=== PATIENT | male | born 1950 | race Caucasian/White ===

== ENCOUNTER → 2020-08-04 | Outpatient (CLI) | payer OTHER ==
[~2020-08-04] MED LIST: CARVEDILOL6.25 M1 PO; CLOPIDOGREL75 MG PO; ELIQUIS5 MG PO; IMBRUVICA420 MG PO; LISINOPRIL10 MG PO; ROSUVASTATIN CA20 MG PO
== END ==
LOC: SJCVCIMAG 07:28
PROVIDERS: ATTEND Internal Medicine
DX: I65.23 Occlusion and stenosis of bilateral carotid arteries (principal); I35.8 Other nonrheumatic aortic valve disorders; I27.20 Pulmonary hypertension, unspecified; I48.91 Unspecified atrial fibrillation; I49.3 Ventricular premature depolarization; R55 Syncope and collapse; I25.10 Atherosclerotic heart disease of native coronary artery without angina pectoris; I25.83 Coronary atherosclerosis due to lipid rich plaque; I10 Essential (primary) hypertension; I48.0 Paroxysmal atrial fibrillation; L98.9 Disorder of the skin and subcutaneous tissue, unspecified; E78.2 Mixed hyperlipidemia; Z95.5 Presence of coronary angioplasty implant and graft; Z88.8 Allergy status to other drugs, medicaments and biological substances; Z79.899 Other long term (current) drug therapy; Z87.891 Personal history of nicotine dependence

== ENCOUNTER 2020-08-10 08:56 | Observation (INO) | payer OTHER ==
[~2020-08-10] VITALS: Ht 170.2 cm; Wt 97.1 kg
[2020-08-10 09:39] VITALS: BP 98/66
[2020-08-10] MEDS ORDERED: CARVEDILOL6.25 M1 PO (09:50)
[2020-08-10] MEDS ORDERED: LISINOPRIL10 MG PO (09:50)
[2020-08-10] MEDS ORDERED: IMBRUVICA420 MG PO (09:51)
[2020-08-10] MEDS ORDERED: ELIQUIS5 MG PO (09:52)
[2020-08-10 10:04] LABS: HEMATOCRIT 46.7 % (42.0-52.0); HEMOGLOBIN 15.4 gm/dL (14.0-18.0); MCHC 33.1 g/dL (28.0-37.0); MCV 102.8 fL (80.0-100.0); RBC 4.54 mil/uL (4.50-6.00); RDW 13.9 % (10.5-14.5)
[2020-08-10 10:14] LABS: CALCIUM 8.7 mg/dL (8.5-10.1); CREATININE 1.2 mg/dL (0.7-1.3); POTASSIUM 4.3 mmol/L (3.5-5.1)
--- NOTE | 2020-08-10 12:48 | EKG ---
[place] [address] [facility] [place] [address] ELECTROCARDIOGRAM REPORT Name: ALIYAH PAULINO Room #: REG LYNDA Cabrera#: [id number] Admission: 08/10/20 Attend Phys: Addison Estrada Discharge: Date of : 46 Report #: [id number] [facility] Test Date: 2020-08-10 Test Time: 09:19:35 Pat Name: ALIYAH PAULINO Department: Room: Gender: M Cost Coordinator: BRITANY : 1950 Requested By: Addison Estrada Order Number: [id number] MD: Scar Pappas Measurements Intervals [place] Rate: 73 P: CT: QRS: 62 QRSD: 96 T: -24 QT: 385 QTc: 425 Interpretive Statements Atrial fibrillation Low voltage, precordial leads Borderline T abnormalities, inferior leads Compared to ECG 10/14/2003 06:40:48 Low QRS voltage now present Sinus rhythm no longer present Myocardial infarct finding no longer present Possible ischemia no longer present T-wave abnormality still present Electronically Signed On 08-10-2020 12:47:54 [employer]MAIL MARKETING PROCESSOR by Scar Pappas [email or web address] <ELECTRONICALLY SIGNED> By: Scar Pappas MD, FACC 08/10/20 1247 8 09 Scar Pappas MD, FAC /EPI
[2020-08-10 15:00] VITALS: BP 130/68
--- NOTE | 2020-08-10 15:28 | NUR ---
TO UNIT POST CATH BY BED, REPORT FROM SHARIF ELDRIDGE. RIGHT GROIN SITE CDI, SOFT AND NONTENDER. AT BEDSIDE. AFIB PER TELE, HR 60-70'S. ORIENTED TO UNIT AND FALL PRECAUTIONS.
[2020-08-10 16:00] VITALS: BP 120/67
[2020-08-10 20:15] VITALS: BP 129/76
--- NOTE | 2020-08-11 03:10 | NUR ---
ASSESSMENTS CHARTED, MEDS CHARTED GIVEN. PATIENT WENT TO [employer]IL STRAPPER DURING DAY, RECEIVED STENT TO RCA, AND REEMED AN EXISTING STENT. PATIENT OFF BEDREST AT START OF SHIFT. RIGHT GROIN DRESSING IS BLOODY WITH PERIMETERS MARKED. PATIENT SNEEZED AND CAUSED THE CLOT TO BREAK. PERIMETER HAS NOT CHANGED DURING SHIFT. WHILE CHECKING GROIN SITE, WOUNDS WERE FOUND ON RIGHT HIP AND PUBIC AREA. PATIENT AND STATE THEY ARE CAUSED BY HIS IBRUTINIB MEDICATION. FALL PRECAUTIONS IN PLACE DURING SHIFT. PLAN OF CARE IS TO GO HOME IN THE AM.
[2020-08-11 04:45] VITALS: BP 130/67
[2020-08-11 06:56] LABS: ALBUMIN 3.2 g/dL (3.4-5.0); CALCIUM 8.1 mg/dL (8.5-10.1); CREATININE 0.9 mg/dL (0.7-1.3); POTASSIUM 3.7 mmol/L (3.5-5.1); TOTAL BILIRUBIN 0.9 mg/dL (0.2-1.0); TOTAL PROTEIN 5.5 g/dL (6.4-8.2)
[2020-08-11] MEDS ORDERED: CLOPIDOGREL75 MG PO (07:52)
[2020-08-11 07:54] VITALS: BP 115/70
[2020-08-11 07:58] LABS: WBC 5.8 thou/uL (4.0-11.0)
[2020-08-11 08:06] LABS: HEMOGLOBIN 14.8 gm/dL (14.0-18.0); RBC 4.31 mil/uL (4.50-6.00)
[2020-08-11] MEDS ORDERED: ROSUVASTATIN CA20 MG PO (08:08)
[2020-08-11 08:09] LABS: HEMATOCRIT 44.7 % (42.0-52.0); MCH 34.4 pg (26.0-34.0); MCHC 33.2 g/dL (28.0-37.0); MCV 103.6 fL (80.0-100.0); RDW 14.1 % (10.5-14.5)
[2020-08-11 11:42] VITALS: BP 105/61
[2020-08-11 13:06] LABS: HEMATOCRIT 42.9 % (42.0-52.0); HEMOGLOBIN 14.6 gm/dL (14.0-18.0); MCH 34.4 pg (26.0-34.0); MCHC 33.9 g/dL (28.0-37.0); MCV 101.4 fL (80.0-100.0); RBC 4.23 mil/uL (4.50-6.00); RDW 13.6 % (10.5-14.5); WBC 4.9 thou/uL (4.0-11.0)
--- NOTE | 2020-08-11 13:58 | NUR ---
PT RESTING COMFORTABLY IN BED/CHAIR FOR MAJORITY OF DAY. WAS ABLE TO SHOWER. PT TO BE DC'D HOME TODAY. FEMORAL CATH SITE IS C/D/I, NO S/S OF BLEEDING OR INFECTION. CHRONIC A-FIB CONTROLED ON TELEMTRY MONITOR. PT AND HAVE BEEN UPDATED AND EDUCATED ON PT CONDTION AND POC. PT PROGRESSING TOWARDS POC.
[2020-08-11 15:03] VITALS: BP 105/61
--- NOTE | 2020-08-15 18:07 | CATHLAB ---
[facility] [address] [place] [address] INVASIVE PROCEDURE REPORT Name: ALIYAH PAULINO Room #: 208-P [facility] Maribell Cabrera#: [id number] Admission: 08/10/20 Attend Phys: Addison Estrada Discharge: 08/11/20 Date of : 46 Report #: [id number] THIS REPORT FOR: cc: Bernice Bean Dorothy L. RNP Lammoglia, Francisco J. MD ~ APPROVED REPORT Study performed: 08/10/2020 10:28:52 Patient Details Patient Status: Out-Patient Room #: The patient is a 70 year-old male Event Personnel Addison Estrada Covering Machine Operator, Maria Del Rosario Lazcano RN RN, Pricilla Unger RTR ScrDixon waldron Ja'net RTR Monitor, Kenneth Pak RTR Tractor Expert Procedures Performed Left Heart Cath w/or w/o Coronaries [id number] [facility] FFR [id number] FFR of LAD, EDNA Place w/wo Plasty Single RCA 913579 Art Access - R femoral artery* Hemostasis w/ Mynx 40499 Initial Mod Sed Same Phys/QHP Gr5y [id number] 76028 Mod Sed Same Phys/QHP Ea 978286 supervision of conscious sedation Indication Non-STEMI (>24 hrs to = 48 hrs), Chest pain Risk Factors Hypercholesterolemia, Coronary Artery Disease Procedure Narrative The Right Groin^ was infiltrated with 1% Lidocaine subcutaneous anesthesia. A PINNACLE 4FR Sheath #[id number] sheath was inserted into the RFA^. Coronary angiography was performed using coronary diagnostic catheters. The right coronary system was accessed and visualized with a JR4 catheter. The left coronary system was accessed and visualized with a JL4 catheter. The left ventricle was accessed and visualized with a JR4 catheter. Closure device was deployed with a Fr MYNXGRIP 6/7F #[id number]. The patient tolerated the procedure well and there were no complications associated with the procedure. There was no hematoma. [facility] [address] [place] [address] INVASIVE PROCEDURE REPORT Name: ALIYAH PAULINO Room #: 208-P DIS IN .R.#: [id number] Admission: 08/10/20 Attend Phys: Addison Chopra Discharge: 08/11/20 Date of : 46 Report #: [id number] Intraoperative Conscious Sedation Sedation start time: 12:03 Case end Time: 13:18 Versed 2 mg Fluoro Time: 14.51 minutes Dose: DAP 34608.60 cGycm2 2062 mGy Contrast Type and Amount: Omnipaque 175 ml Coronary Angiography The patient's coronary anatomy is right dominant. Diagnostic Cath Left Main Normal origin caliber has a proximal tapering less than 50%. The vessel and bifurcates into left anterior descending left circumflex and is free of high-grade disease LAD Moderate caliber type II vessel which courses in the anterior interventricular sulcus. Gives rise to a small first diagonal branch and a first septal power and recovery shift engineer beyond this is a region of eccentric lesion that appears to be greater than 65 to 70% visually. The vessel reconstitutes continues in the anterior interventricular sulcus terminating is a small caliber vessel at the apex Diagonal 1 Small insignificant caliber vessel without high-grade disease Circumflex Moderate caliber vessel which really bifurcates giving rise to first marginal branch that courses along the course is a ramus would pursue. After the origin of the first marginal branch the vessel continues giving rise to a second marginal coursing on the lateral aspect of the heart and terminates as a small posterior wall branch in the AV groove. OM1 Small to moderate caliber vessel quite tortuous in its course along the lateral aspect of the left ventricle but is free of high-grade disease OM2 Small caliber vessel coursing on the lateral left ventricular wall tortuous course but no high-grade lesions are noted only mild irregularities of breath Right Coronary Large-caliber vessel normal origin courses in the AV groove. Prior to the acute margin there is a prior stent noted that appears to be undersized for the RCA proper. The stent has moderate irregularities towards its mid and distal portions. Beyond the end of the stent is an eccentric lesion of greater than 70% involving a small RV marginal branch. The vessel reconstitutes itself continues posteriorly to acute marginal gives rise a small to moderate caliber posterior descending artery. Then gives rise to a very small posterior wall branch a moderate caliber posterior lateral branch and second posterolateral branch that then terminates a small terminal [facility] [address] [place] [address] INVASIVE PROCEDURE REPORT Name: ALIYAH PAULINO Room #: 208-P DIS IN M.R.#: [id number] Admission: 08/10/20 Attend Phys: Addison Chopra Discharge: 08/11/20 Date of : 46 Report #: [id number] branch. There is mild irregularities noted in both the RCA and a posterior wall branches no high-grade lesion R PDA Small caliber vessel without high-grade lesions noted Left Ventriculography Left Ventriculography was not performed. IVUS Anticoagulation was achieved with Angiomax. Fractional Flow [place] was performed on the mid left anterior descending artery segment vessel. A JL4 Guide Catheter was used to engage the LAD ostium. A LUGE J-TIP Interventional Guidewire was used. A FFR wire was used. Hemodynamics The aortic pressure is 114/69 mmHg with a mean of 92 mmHg. The left ventricular pressure is 134/73 mmHg with a mean of mmHg. The left ventricular end diastolic pressure is 73 mmHg. Pullback from the left ventricle to the aorta revealed no gradient across the aortic valve. PCI Technique Lesion Anticoagulation was achieved with Angiomax. Percutaneous coronary intervention was performed on the mid right coronary artery including the mid and distal stent utilizing a scoring balloon. The lesion stenosis prior to intervention was 75% with TNOY 2 flow. A LAUNCHER 6FR JR 4 #[id number] Guide Catheter was used to engage the RCA ostium. A Luge Wire (J) .014 X 182CM #[id number] Interventional Guidewire was used to cross the lesion. BALLOON DILATION A Balloon catheter ANGIOSCULPT RX 3.5MM X 15MM was inserted and inflated up to 14.00atm for 35seconds. Repeat angiography revealed the following post-dilatation results: Demonstrated improvement of these distal stent but not fully deployed.. Additional Inflation: 14.00atm for 27seconds. Additional Inflation: 14.00atm for 29seconds. STENT DEPLOYMENT A drug-eluting stent RESOLUTE ANDREY OTW 3.5 X 12 #[id number] was inserted and inflated up to 20.00atm for 16seconds. Repeat angiography revealed the following post-stent deployment results: Lesion was improved with the RV marginal branch not compromised. Full deployment was achieved of the deployed stent but the prior previous sleep placed stent was attempted to be maximally dilated with numerous inflation. Additional Inflation: 14.00atm for 7seconds. Additional [facility] [address] [place] [address] INVASIVE PROCEDURE REPORT Name: ALIYAH PAULINO Room #: 208-P [facility] IN M.R.#: [id number] Admission: 08/10/20 Attend Phys: Addison Chopra Discharge: 08/11/20 Date of : 46 Report #: [id number] Inflation: 20.00atm for 9seconds. Additional Inflation: 20 jayshree for 12 seconds. Additional Inflation: 20 jayshree for 7 seconds. POST STENT DEPLOYMENT BALLOON DILATION A Balloon [facility] 4.0 X 12 #[id number] was inserted and inflated up to 14.00atm for 29seconds. Additional Inflation: 14.00atm for 12seconds. Additional Inflation: 16.00atm for 15seconds. Additional Inflation: 16 jayshree for 12 seconds. Additional Inflation: 14 jayshree for 7 seconds. Additional Inflation: 18 jayshree for 21 seconds. COMMENTS The centric lesion was stented successfully with adequate stent deployment. The prior stent that required multiple inflations to optimize size. Post dilatation and intervention TONY flow was 3 and no loss of side branches embolization or intraluminal thrombus is identified PCI Technique Lesion The lesion stenosis prior to intervention was mid left anterior descending artery segment% with TONY JL4 flow. A LAD Guide Catheter was used to engage the LUGE J-TIP ostium. A FFR wire Interventional Guidewire was used to cross the lesion. Conclusion 1. Coronary disease, significant two-vessel 2. Abnormal hemodynamics elevated low ventricular end-diastolic pressures 3. iFR of the mid left anterior descending artery not significant at 0.95 4. Successful deployment of a EDNA stent to the proximal RCA and maximal sculpting and dilatation of a prior proximal RCA stent Recommendations Cardiac Risk Reduction Program Dual antiplatelet therapy will be optimized. As well as augmenting antianginal regimen in view of the patient having a mid LAD lesion <ELECTRONICALLY SIGNED> By: Addison Estrada MD 08/15/201806 06 06 Addison Estrada MD /INF
== END 2020-08-11 15:28 | disposition home or self-care (01) ==
LOC: CATH 08:56 → 2N 14:52
PROVIDERS: Nurse Practitioner; ADMIT Internal Medicine; ATTEND Internal Medicine
DX: I25.10 Atherosclerotic heart disease of native coronary artery without angina pectoris (principal); E78.5 Hyperlipidemia, unspecified; I10 Essential (primary) hypertension; E78.00 Pure hypercholesterolemia, unspecified; R55 Syncope and collapse; I48.91 Unspecified atrial fibrillation; Z79.899 Other long term (current) drug therapy